=== PATIENT | male | born 1955 | race Caucasian/White ===

== ENCOUNTER → 2024-01-24 08:25 | Outpatient (REF) | payer MEDICARE, OTHER, SELFPAY | LOC: RAD 08:25 | PROVIDERS: ATTENDING PHYSICIAN Nurse Practitioner Family | DX: R05.1 Acute cough (principal) | CPT/HCPCS: 71046 ==

== ENCOUNTER → 2024-05-22 07:42 | Outpatient (REF) | payer MEDICARE, OTHER, SELFPAY | LOC: DHVS 07:42 | PROVIDERS: ATTENDING PHYSICIAN Surgery Vascular Surgery; FAMILY PHYSICIAN Family Medicine | DX: I73.9 Peripheral vascular disease, unspecified (principal) | CPT/HCPCS: 93922; 93925 ==

== ENCOUNTER 2024-07-25 14:19 | Inpatient (IN) | payer MEDICARE, OTHER, SELFPAY ==
[2024-07-25 10:40] VITALS: BP 146/80
--- NOTE | 2024-07-25 10:44 | ED.GENMED ---
ED Provider Triage
<Abran Fraire PA-C - Last Filed: 07/25/24 10:45>
-
Patient seen by provider in Triage?: Seen in Triage
69-year-old male presents complaining of increasing swelling redness and pain to the left elbow. He states he was working on his pool 2 weeks ago and may have injured it.'s been swollen since then. He also notes chills body aches and sweats.
Initially seen at the urgent care but was sent here for further evaluation. He is not a diabetic. He has a history of COPD.
On exam left elbow is tender over the olecranon with swelling over the olecranon bursa. He does have decent motion. Question bursitis versus elbow injury or cellulitis. Basic labs drawn. He is afebrile per order x-rays. Advise that he needs
further evaluation
History of Present Illness
<Abran Fraire PA-C - Last Filed: 07/25/24 10:45>
General
Chief Complaint: Musculo-Skeletal Complaint
Time Seen by Provider: 07/25/24 11:14
<Ari Liang DO - Last Filed: 07/25/24 13:18>
General
Source: patient
Exam Limitations: none
History of Present Illness
History of Present Illness:
See MDM
Past History
<Abran Fraire PA-C - Last Filed: 07/25/24 10:45>
Past History
ED Past Medical History: COPD, HTN and Hypercholesterolemia
ED Past Surgical History: Other (Femoropopliteal bypass)
Social History
Tobacco: Former smoker
Alcohol: None
Drug: None
Personal:
Living: with family
Phy Exam
<Ari Liang DO - Last Filed: 07/25/24 13:18>
Physical Exam
Physical Exam:
See MDM
Course
<Abran Fraire PA-C - Last Filed: 07/25/24 10:45>
Orders/Labs/Results
Orders:
Orders
07/25/24 10:40
CR Elbow - Left Min 3 Views Urgent
Comment:
Reason For Exam: pain, swelling
07/25/24 10:50
C-Reactive Protein Urgent
Comment: ADD ON
Complete Blood Count/With Diff Urgent
Comprehensive Metabolic Panel Urgent
Erythrocyte Sed Rate Urgent
Comment: ADD ON
07/25/24 11:25
US Periph Venous UPPER Ext LT Urgent
Comment:
Reason For Exam: left forearm swelling and pain
07/25/24 11:38
Add On- LAB Urgent
Tests Added?: ESR, CRP
07/25/24 11:59
Body Fluid Cell Count Urgent
What is the Body Fluid: joint
Date Specimen was Collected: 07/25/24
Time Specimen was Collected: 11:52
Comment: with DIFF
Body Fluid Crystals Urgent
What is the Body Fluid: joint
Date Specimen was Collected: 07/25/24
Time Specimen was Collected: 11:52
Body Fluid Glucose Urgent
Fluid Source: Other
Other Source: Left olecranon bursa
Date Specimen was Collected: 07/25/24
Time Specimen was Collected: 11:52
Fluid Culture with Gram Stain Urgent
SHANTI Source: Joint Fluid
Specimen Description:
Date Specimen was Collected: 07/25/24
Time Specimen was Collected: 11:52
Gram Stain Stat
SHANTI Source: Joint
Specimen Description:
Date Specimen was Collected: 07/25/24
Time Specimen was Collected: 11:53
07/25/24 13:07
Piperacillin/Tazo 3.375 Gram [Zosyn] 3.375 gram in 50 ml IV NOW
Vancomycin [Vancocin] 2,000 mg 0.9% Sodium Chloride 500 ml [Nss] 500 ml IV NOW
07/25/24 13:08
PTT Urgent
Prothrombin Time Urgent
Abnormal Lab Results
07/25/24
10:50
Absolute Neuts (auto) 8.3 H 10^3/uL
(1.4-6.5)
Absolute Lymphs (auto) 0.7 L 10^3/uL
(1.2-3.4)
Absolute Monos (auto) 1.2 H 10^3/uL
(0.1-0.6)
Neutrophils % 80.2 H %
(42.2-75.2)
Lymphocytes % 6.8 L %
(20.5-51.1)
Monocytes % 11.7 H %
(1.7-9.3)
Potassium 3.4 L mmol/L
(3.5-5.1)
BUN 25 H mg/dl
(9-20)
Glucose 100 H mg/dl
(70-99)
Total Protein 6.1 L g/dl
(6.3-8.2)
07/25/24 10:50
07/25/24 10:50
Vital Signs
Initial and Last Documented VS:
Initial Vital Signs
Temp Pulse Resp BP Pulse Ox
98.0 F 75 20 146/80 89
07/25/24 10:40 07/25/24 10:40 07/25/24 10:40 07/25/24 10:40 07/25/24 10:40
Last Documented Vital Signs
Temp Pulse Resp BP Pulse Ox
98.0 F 75 20 146/80 89
07/25/24 10:40 07/25/24 10:40 07/25/24 10:40 07/25/24 10:40 07/25/24 10:40
<Ari Liang, DO - Last Filed: 07/25/24 13:18>
Orders/Labs/Results
Orders:
Orders
07/25/24 10:40
CR Elbow - Left Min 3 Views Urgent
Comment:
Reason For Exam: pain, swelling
07/25/24 10:50
C-Reactive Protein Urgent
Comment: ADD ON
Complete Blood Count/With Diff Urgent
Comprehensive Metabolic Panel Urgent
Erythrocyte Sed Rate Urgent
Comment: ADD ON
07/25/24 11:25
US Periph Venous UPPER Ext LT Urgent
Comment:
Reason For Exam: left forearm swelling and pain
07/25/24 11:38
Add On- LAB Urgent
Tests Added?: ESR, CRP
07/25/24 11:59
Body Fluid Cell Count Urgent
What is the Body Fluid: joint
Date Specimen was Collected: 07/25/24
Time Specimen was Collected: 11:52
Comment: with DIFF
Body Fluid Crystals Urgent
What is the Body Fluid: joint
Date Specimen was Collected: 07/25/24
Time Specimen was Collected: 11:52
Body Fluid Glucose Urgent
Fluid Source: Other
Other Source: Left olecranon bursa
Date Specimen was Collected: 07/25/24
Time Specimen was Collected: 11:52
Fluid Culture with Gram Stain Urgent
SHANTI Source: Joint Fluid
Specimen Description:
Date Specimen was Collected: 07/25/24
Time Specimen was Collected: 11:52
Gram Stain Stat
SHANTI Source: Joint
Specimen Description:
Date Specimen was Collected: 07/25/24
Time Specimen was Collected: 11:53
07/25/24 13:07
Piperacillin/Tazo 3.375 Gram [Zosyn] 3.375 gram in 50 ml IV NOW
Vancomycin [Vancocin] 2,000 mg 0.9% Sodium Chloride 500 ml [Nss] 500 ml IV NOW
07/25/24 13:08
PTT Urgent
Prothrombin Time Urgent
Abnormal Lab Results
07/25/24
10:50
Absolute Neuts (auto) 8.3 H 10^3/uL
(1.4-6.5)
Absolute Lymphs (auto) 0.7 L 10^3/uL
(1.2-3.4)
Absolute Monos (auto) 1.2 H 10^3/uL
(0.1-0.6)
Neutrophils % 80.2 H %
(42.2-75.2)
Lymphocytes % 6.8 L %
(20.5-51.1)
Monocytes % 11.7 H %
(1.7-9.3)
Potassium 3.4 L mmol/L
(3.5-5.1)
BUN 25 H mg/dl
(9-20)
Glucose 100 H mg/dl
(70-99)
Total Protein 6.1 L g/dl
(6.3-8.2)
07/25/24 10:50
07/25/24 10:50
Vital Signs
Initial and Last Documented VS:
Initial Vital Signs
Temp Pulse Resp BP Pulse Ox
98.0 F 75 20 146/80 89
07/25/24 10:40 07/25/24 10:40 07/25/24 10:40 07/25/24 10:40 07/25/24 10:40
Last Documented Vital Signs
Temp Pulse Resp BP Pulse Ox
98.0 F 75 20 146/80 89
07/25/24 10:40 07/25/24 10:40 07/25/24 10:40 07/25/24 10:40 07/25/24 10:40
Procedures
<Ari Liang, DO - Last Filed: 07/25/24 13:18>
Incision/Drainage/Joint Aspiration
Left Olecranon Bursa:
Preparation: cleaned with Betadine
Type of procedure: aspiration
Nature of site: other (Effusion)
Description of abscess: greater than 3cm
Loculations broken up: No
How much fluid was obtained?: number in mls (20 mL)
Fluid description: purulent
Treatment: bandaid applied
<Ari Liang, DO - Last Filed: 07/25/24 13:18>
MDM/Problems Addressed
Differential Diagnosis Includes:
HPI and MDM Narrative:
69-year-old male presenting with left elbow swelling. Patient thinks he injured it 2 weeks ago while closing of his pool. He noticed some fevers and chills few days ago. Went to urgent care and sent to the emergency department because of a did
not have x-ray capabilities at that moment
However, patient has edematous and erythematous left forearm. He has evidence of left olecranon bursitis. There is mild surrounding erythema.
Physical exam
General: Well appearing and non-toxic
HEENT: protecting airway
Neck: appears supple
CV: No evidence of cyanosis
Resp: No accessory muscle use
Abd: Non-distended
Extremities: Left elbow bursitis. Edema and erythema noted to left forearm
Neuro: alert
Psych: Normal affect
Skin: Intact
Problems Addressed including Acute and Chronic Conditions affecting care:
1. Left elbow bursitis
Acuity: acute
Prognosis: stable
Details: X-rays negative. Patient afebrile and white blood cell count normal. However, the aspirate was purulent
Updates
The left olecranon bursitis was drained at bedside. 20 mL of purulent aspirate was removed. Will send for testing
Given high concern for septic bursitis, will admit for IV antibiotics
Differential Diagnosis (but not limited to): Fracture, contusion, bursitis
Testing considered: Synovial fluid analysis
Drug therapy (if applicable): OTC meds, please see d/c instruction regarding Rx drugs
Amount and/or Complexity of Data Reviewed
Clinical info obtained from: Patient
External data reviewed: N/A
Labs I independently reviewed (but not limited to): White blood cell count normal
Radiology: X-ray independently reviewed: Elbow x-ray negative for fracture
Pulse Ox: not hypoxic
EKG independently reviewed: N/A
Shuttle Fitting Supervisor: N/A
Critical Care: N/A
Risk of Complication:
Social Determinants of health: Good social support
Discussed with other providers: Hospitalist
Escalation of Care includes Admit/Obs: Given the concern for septic bursitis, will admit for IV antibiotics
Occasional wrong word or 'sound a like' substitutions may have occurred due to the inherent limitations of voice recognition software. Read the chart carefully and recognize, using context, where substitutions have occurred.
<Ari Liang DO - Last Filed: 07/25/24 13:18>
*Critical Care Note
Total Time (30-74mins, 75-104mins- exclusive of procedures): Not Applicable
ED Attending Note
<Abran Fraire PA-C - Last Filed: 07/25/24 10:45>
-
Portions of this chart may have been created with voice recognition software.� Occasional wrong word or��sound alike� substitutions may have occurred due to the inherent limitations of voice recognition software.
Discharge Plan
Departure
Patient Disposition: Admit
Date of Disposition: 07/25/24
Time of Disposition: 13:14
Admit to: Med/Surg
Presentation/result/management discussed w/ accepting MD/DO: Hospitalist
Discharge Problem:
Septic bursitis of elbow
Prescriptions:
No Action
Atorvastatin
80 mg PO HS
furosemide 40 MG tablet
40 mg PO DAILY
metoprolol succinate 100 MG tablet extended release 24 hr
150 mg PO DAILY
aspirin [[place] Low Dose Aspirin] 81 MG tablet,delayed release (DR/EC)
81 mg PO DAILY
acetaminophen 325 MG tablet
650 mg PO Q4HPRN PRN (Reason: mild pain or temp >/= 100.4F) 0RF
montelukast 10 mg Tablet
10 mg PO DAILY
hydralazine 50 mg Tablet
50 mg PO TID
Trelegy Ellipta 200-62.5-25 mcg Blister With Device
1 inh INHALATION DAILY
Referrals:
Radha Feliciano MD [Family Provider] -
Interventions
Interventions:
*Risk Screen - Suicide Last Done: 07/25/24 10:40
*General Assessment Last Done: 07/25/24 10:40
*Neglect/Abuse Screening Last Done: 07/25/24 10:40
ED- Fall Risk Assessment Last Done: 07/25/24 11:14
*ED COVID-19 Vaccine History Last Done: 07/25/24 11:13
ED-Musculoskeletal Assessment Last Done: 07/25/24 11:13
Discharge Date and Time
Print Language: WELSH
[2024-07-25 11:05] LABS: % Basophils 0.3 % (0-2); % Eosinophils 0.7 % (0-6); % Immature Granulocytes 0.3 % (0-0.5); % Lymphocytes 6.8 % (20.5-51.1); % Monocytes 11.7 % (1.7-9.3); % Neutrophils 80.2 % (42.2-75.2); Absolute Eosinophils 0.1 10^3/uL (0-0.7); Absolute Lymphocytes 0.7 10^3/uL (1.2-3.4); Absolute Monocytes 1.2 10^3/uL (0.1-0.6); Absolute Neutrophils 8.3 10^3/uL (1.4-6.5); Hematocrit 47.2 % (39.0-52.0); Hemoglobin 16.1 g/dL (13.0-18.0); Mean Corp Hgb Conc. 34.1 g/dL (33.0-37.0); Mean Corpuscular Hgb 30.9 pg (27.0-31.0); Mean Corpuscular Volume 90.6 fL (80.0-94.0); Mean Platelet Volume 10.2 fL (7.4-10.4); Nucleated Red Blood Cells % 0 % (-); Platelet Count 203 10^3/uL (130-400); Red Blood Cell Count 5.21 10^6/uL (4.70-6.10); Red Cell Dist. Width 13.5 % (11.5-14.5); White Blood Cell Count 10.3 10^3/uL (4.8-10.8)
[2024-07-25 11:24] LABS: ALT (SGPT) 28 U/L (0-50); AST (SGOT) 28 U/L (17-59); Albumin 3.6 g/dl (3.5-5.0); Alkaline Phosphatase 61 U/L (38-126); Blood Urea Nitrogen 25 mg/dl (9-20); Calcium 8.8 mg/dl (8.4-10.2); Carbon Dioxide 30 mmol/L (22-30); Chloride 100 mmol/L (98-107); Glucose 100 mg/dl (70-99); Potassium 3.4 mmol/L (3.5-5.1); Sodium 144 mmol/L (135-145); Total Bilirubin 1.1 mg/dl (0.2-1.3); Total Protein 6.1 g/dl (6.3-8.2); eGFR > 60.00
--- NOTE | 2024-07-25 13:32 | HPS.HSE ---
Family Physician
-
Family Physician: Radha Feliciano
Chief Complaint
-
Left elbow pain and swelling
History of Present Illness
HPI: 69-year-old male PMH COPD, HTN, HLD, p/w L elbow pain and swelling.
Pt was working on his pool 2 weeks ago, and had an injury on his left elbow at that time. Since the injury, his elbow has been swollen.
He was seen at an urgent care for chills and body ache ongoing for 1 week, and was told to come to the ED for further evaluation.
He is left elbow was aspirated in the ER and pus was noted.
He was admitted for further treatment of olecranon bursitis/septic arthritis.
Medical History
Past Medical History
Past Medical History: Reports Other
Additional Past Medical History:
COPD,
HTN,
HLD,
Peripheral artery disease
History of traumatic brain injury
Past Surgical History: Reports Other
Additional Past Surgical History:
Femoral-popliteal bypass surgery
hernia surgery
Social History
Tobacco: Former Smoker (Quit in 2019)
Alcohol: Occasional
Personal:
Living: With Family
Family History
Family History: Not pertinent
Allergies / Home Medications
Allergies reflects when Allergies were last updated in [facility].
Home Medications with original date entered in [facility]
Allergy/Medication List:
Allergies
Allergy/AdvReac Type Severity Reaction Status Date / Time
No Known Allergies Allergy Verified 07/25/24 10:40
Home Medications
aspirin 81 mg tablet,delayed release ([place] Low Dose Aspirin) 81 mg PO DAILY Blood Clot Prevention/Tx 08/07/19
furosemide 40 mg tablet 80 mg PO DAILY Fluid Retention/Swelling 08/07/19
metoprolol succinate 100 mg tablet,extended release 24 hr 150 mg PO BID Blood Pressure 08/07/19
fluticasone fur. 200 mcg-umeclid 62.5 mcg-vilant 25 mcg inhalat.powder (Trelegy Ellipta) 1 inh inhalation HS Lung/Breathing Issues 08/27/23
hydralazine 50 mg tablet 50 mg PO TID Blood Pressure 08/27/23
atorvastatin 80 mg tablet 80 mg PO DAILY 07/25/24
furosemide 40 mg tablet 40 mg PO DAILY@1600 Fluid Retention/Swelling 07/25/24
Review of Systems
-
Musculoskeletal: Reports See HPI, Joint Pain (L elbow) and Joint Swelling (L elbow)
Physical Exam
Vital Signs
Vital Signs
Temp Pulse Resp BP Pulse Ox
36.7 C 75 20 146/80 89
07/25/24 10:40 07/25/24 10:40 07/25/24 10:40 07/25/24 10:40 07/25/24 10:40
Physical Exam
General: Well Developed, Well Nourished, No Apparent Distress, Conversant and Pain
HEENT: NormoCephalic, Moist mucous membranes and Atraumatic
Respiratory: Clear and Non Labored Respirations; No Accessory Resp Muscle Use
Cardiac: S1/S2 and Regular Rhythm; No Murmur or Rub
GI: Soft, Non Tender, Non Distended and Normal Bowel Sounds; No Organomegaly
Rectal: Deferred by Provider
Musculoskeletal: Other (Left elbow swelling)
Skin: No Rash
Neuro: Awake and Alert
Psych: Calm and Intact Judgment/Insight
Laboratory Results
-
07/25/24 10:50
07/25/24 10:50
Laboratory Results
Total Bilirubin 1.1 mg/dl (0.2-1.3) 07/25/24 10:50
AST 28 U/L (17-59) 07/25/24 10:50
ALT 28 U/L (0-50) 07/25/24 10:50
Alkaline Phosphatase 61 U/L (38-126) 07/25/24 10:50
Data Reviewed
-
Diagnostic Radiology: Report Reviewed by me
Lab Data: Labs Reviewed by me
Impression/Plan
-
HPI: 69-year-old male PMH COPD, HTN, HLD, p/w L elbow pain and swelling.
Pt was working on his pool 2 weeks ago, and had an injury on his left elbow at that time. Since the injury, his elbow has been swollen.
He was seen at an urgent care for chills and body ache ongoing for 1 week, and was told to come to the ED for further evaluation.
He is left elbow was aspirated in the ER and pus was noted.
He was admitted for further treatment of olecranon bursitis/septic arthritis.
A/P:
# Left elbow olecranon bursitis/ septic arthritis
Status post I&D in the ER which noted pus
With persistent significant left elbow swelling, consult IR for additional arthrocentesis
Follow wound culture etc
Cont empiric antibiotic vancomycin and Zosyn
ID CS
# Hypokalemia
replete
# COPD, stable
# HTN
Continue prior to admission hydralazine, Toprol, Lasix, all with holding parameter
# HLD
Atorvastatin
# Peripheral artery disease
# Status post femoral popliteal bypass surgery
cont BANK APPRAISER ASA
DVT ppx: Lovenox SQ
FC
[2024-07-25 13:37] LABS: Erythrocyte Sed Rate 29 mm/hour (0-20)
[2024-07-25 13:42] VITALS: BMI 33.1
[2024-07-25 13:48] LABS: INR 1.29; PT 16.1 Sec (11.4-14.6)
[2024-07-25 13:49] LABS: APTT 35.2 Sec (23.4-35.0)
[2024-07-25] MEDS: ZOSYN 50 IV (13:50)
[2024-07-25] MEDS: TORADOL 30 MG IV (13:50)
[2024-07-25] MEDS: KCL 40 MEQ PO (13:50)
[2024-07-25] MEDS: VANCOCIN 540 MG IV (14:40)
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
[2024-07-25 15:39] VITALS: BP 130/100
[2024-07-25 16:19] VITALS: BP 143/75
[2024-07-25 16:20] VITALS: BMI 30.7
--- NOTE | 2024-07-25 16:20 | PTCARENOTE ---
Received pt from ED.Pt awake, alert and oriented x3. Pt VSS 92% on RA. Pt Left elbow, red, warm, swelling extending down arm into hand. Pt given pillows to elevate. Pt given tylenol for pain. Pt oriented to room,call hull within reach, plan of care
continues.
--- NOTE | 2024-07-25 16:48 | PHA.VAN.IN ---
Assessment
- Assessment
Renal Function: Appears similar to baseline
Concomitant Antimicrobials: ANCEF
- Previous Dosing Experience
Previous Regimen: 1250MG IV Q12H
Date of Regimen: 08/26/19
Provided Trough of: 08-22 PREDICTED
Provided AUC of: UNKNOWN
Patient's SCR is: Similar to previous dosing experience
Patient's weight is: Decreased compared to previous dosing experience (08/26/19 WT = 110 KG)
AUC Dosing Plan
- Dosing Variables
Dosing Weight (kg): 99.8
Dosing CrCl (ml/min): 75
Vd coefficient (L/kg): 0.6
- Empiric Dosing
Initial / Loading Dose: 2GM
Maintenance Regimen: 1GM IV Q12H
Estimated AUC (mcg*h/mL): 518
Estimated Peak (mcg*h/mL): 30.3
Estimated Trough (mcg/ml): 14.5
Estimated Half Life (H): 10.4
Pharmacokinetics Vancomycin I
- -
Patient Age: 69
Patient Sex: Male
Vancomycin Day #: 1
Indication: [facility] ([L] OLECRANON BURSITIS; [L] ARM CELLULITIS)
Requesting Provider: BATSHEVA
Height / Weight:
Height 5 ft 11 in
Actual Weight 99.79 kg
- Vital Signs / Lab Results
Temp Pulse Resp BP Pulse Ox
98 F 63 18 143/75 92
07/25/24 16:19 07/25/24 16:19 07/25/24 16:19 07/25/24 16:19 07/25/24 16:19
Lab Results - Hematology
07/25/24
10:50
WBC 10.3
Lab Results - Chemistry
07/25/24
10:50
BUN 25 H
Creatinine 1.1
Albumin 3.6
[2024-07-25] MEDS: LASIX 40 MG PO (17:10)
[2024-07-25] MEDS: APRESOLINE 50 MG PO ×2 (17:10→21:05)
[2024-07-25] MEDS: LOVENOX 40 MG SC (17:10)
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
[2024-07-25] MEDS: TYLENOL 650 MG PO (18:08)
[2024-07-25] MEDS: SYMBICORT 160/4.5 MCG INHALER 2 PUFF INH (20:06)
[2024-07-25] MEDS: TOPROL XL 150 MG PO (21:00)
[2024-07-25] MEDS: ANCEF 10 IV (21:02)
[2024-07-25 23:06] VITALS: BP 110/44
[2024-07-26] MEDS: TYLENOL 650 MG PO ×2 (03:37→15:29)
[2024-07-26] MEDS: ANCEF 10 IV ×3 (04:59→21:28)
[2024-07-26] MEDS: VANCOCIN 200 IV (05:19)
[2024-07-26 06:01] LABS: % Basophils 0.5 % (0-2); % Eosinophils 1.4 % (0-6); % Immature Granulocytes 0.5 % (0-0.5); % Lymphocytes 7.9 % (20.5-51.1); % Monocytes 12.2 % (1.7-9.3); % Neutrophils 77.5 % (42.2-75.2); Absolute Eosinophils 0.1 10^3/uL (0-0.7); Absolute Lymphocytes 0.7 10^3/uL (1.2-3.4); Absolute Neutrophils 6.6 10^3/uL (1.4-6.5); Mean Corp Hgb Conc. 33.3 g/dL (33.0-37.0); Mean Corpuscular Hgb 29.7 pg (27.0-31.0); Mean Platelet Volume 10.7 fL (7.4-10.4); Nucleated Red Blood Cells % 0 % (-); Platelet Count 218 10^3/uL (130-400); Red Blood Cell Count 4.72 10^6/uL (4.70-6.10); Red Cell Dist. Width 13.7 % (11.5-14.5); White Blood Cell Count 8.5 10^3/uL (4.8-10.8)
[2024-07-26 06:33] LABS: Blood Urea Nitrogen 22 mg/dl (9-20); Calcium 8.2 mg/dl (8.4-10.2); Carbon Dioxide 28 mmol/L (22-30); Chloride 102 mmol/L (98-107); Estimated Creatinine Clearance 83 ml/min; Glucose 105 mg/dl (70-99); Potassium 3.6 mmol/L (3.5-5.1); Sodium 141 mmol/L (135-145); eGFR > 60.00
[2024-07-26 07:39] VITALS: BP 118/61
[2024-07-26] MEDS: SYMBICORT 160/4.5 MCG INHALER INH (07:49)
[2024-07-26] MEDS: KCL 40 MEQ PO (08:55)
[2024-07-26] MEDS: ASPIR LOW (ENTERIC COATED) 81 MG PO (08:55)
[2024-07-26] MEDS: APRESOLINE 50 MG PO ×3 (08:55→21:29)
[2024-07-26] MEDS: TOPROL XL 150 MG PO ×2 (08:56→21:28)
[2024-07-26] MEDS: LASIX 80 MG PO (08:58)
--- NOTE | 2024-07-26 10:01 | PHA.VAN.FU ---
Vancomycin Assessment / Plan
- Assessment
Renal Function: Stable
WBC's are: WNL
In the past 24 hrs, patient has been: Afebrile
Concomitant Antimicrobials: cefazolin
- Dosing Plan
Continue: Vanc 1000mg Q12H
- Monitoring Plan
No level(s) ordered at this time: consider levels in next few days
- Follow Up
Pharmacy will continue to follow.
Vancomycin Follow UP
- -
Patient Age: 69
Patient Sex: Male
Vancomycin Day #: 2
Indication: [facility]
Requesting Provider: Dr. Cabrera / [place]
Pertinent Antimicrobial Allergies:
NKDA
Height / Weight:
Height 5 ft 11 in
Actual Weight 99.79 kg
Pertinent Past Medical History: BMI ~31
- Vital Signs / Lab Results
Temp Pulse Resp BP Pulse Ox
97.7 F 56 22 118/61 88
07/26/24 07:39 07/26/24 07:39 07/26/24 07:39 07/26/24 07:39 07/26/24 07:39
Lab Results - Hematology
07/25/24 07/26/24
10:50 04:49
WBC 10.3 8.5
Lab Results - Chemistry
07/25/24 07/26/24
10:50 04:49
BUN 25 H 22 H
Creatinine 1.1 1.0
Estimated Creat Clear 83
Albumin 3.6
--- NOTE | 2024-07-26 10:17 | W.PN.HOSP.TC ---
Today's Communication/Plan
-
see A/P
Assessment / Plan
Assessment / Plan
HPI: 69-year-old male PMH COPD, HTN, HLD, p/w L elbow pain and swelling.
Pt was working on his pool 2 weeks ago, and had an injury on his left elbow at that time. Since the injury, his elbow has been swollen.
He was seen at an urgent care for chills and body ache ongoing for 1 week, and was told to come to the ED for further evaluation.
He is left elbow was aspirated in the ER and pus was noted.
He was admitted for further treatment of olecranon bursitis/septic arthritis.
A/P:
# Left septic olecranon bursitis
Status post I&D in the ER which noted pus, follow wound culture
IR was consulted for additional arthrocentesis due to persistent significant left elbow swelling, defer to ortho
Ortho recc conservative Mx for now with Abx, 'surgical intervention reserved for recurrent or recalcitrant cases'.
Cont empiric antibiotics vancomycin, added Ancef and off Zosyn
L arm US negative for DVT
ID on board
# Hypokalemia
replete
# COPD, stable
# HTN
Continue prior to admission hydralazine, Toprol, Lasix, all with holding parameter
# HLD
Atorvastatin
# Peripheral artery disease
# Status post femoral popliteal bypass surgery
cont VMWARE CONSULTANT ASA
DVT ppx: Lovenox SQ
FC
DW at beside
Anticipated Discharge: 24 - 48 hours
Subjective/Interval History
-
Date of Service: July 26, 2024
Objective Data
-
Labs:
Laboratory Results
07/26/24
04:49
WBC 8.5
Hgb 14.0
Hct 42.0
Plt Count 218
Sodium 141
Potassium 3.6
Chloride 102
Carbon Dioxide 28
BUN 22 H
Creatinine 1.0
Glucose 105 H
Calcium 8.2 L
Vital Signs:
Vital Signs
Temp Pulse Resp BP Pulse Ox
36.5 C 56 22 118/61 88
07/26/24 07:39 07/26/24 07:39 07/26/24 07:39 07/26/24 07:39 07/26/24 07:39
I&O
07/25/24 07/26/24 07/27/24
06:59 06:59 06:59
Intake Total 480 / 480
Output Total 210 / 210
Balance 270 / 270
Review of Systems
-
Musculoskeletal: Reports Joint Pain (L elbow swelling and pain have improved )
Physical Exam
-
General: Well Developed, Well Nourished, No Apparent Distress, Comfortable and Conversant; Negative Respiratory Distress
HEENT: Normocephalic, Atraumatic, Nose Appears Normal and Ears Appear Normal; Negative Oxygen
Respiratory: Clear to Auscultation and Non Labored Respirations; Negative Accessory Resp Muscle Use
Cardiac: Regular Rhythm and S1/S2
GI: Soft, Nontender, Nondistended and Normal Bowel Sounds
Skin: Warm, Dry and Other (L elbow swelling and erythema )
Neuro: Awake, Alert, Oriented, AO x 3 and Nonfocal/Grossly Intact
Psych: Calm and Intact Judgement/Insight
Data Reviewed
-
Ultrasound: Report Reviewed by me
Labs: Labs Reviewed by me
--- NOTE | 2024-07-26 15:40 | W.PN.ID1 ---
Date of Service
Date of Service: July 26, 2024
Today's Communication
Continue antibiotics. Narrow to cefazolin alone.
Assessment / Plan
Left olecranon bursitis
Left arm cellulitis
Normal white count with left shift
Elevated CRP
PAD
HTN
COPD
Dyslipidemia
Obesity
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
Recommendations:
Bursa cultures were reviewed with the microbiology department. Staph aureus found on culture; PBP2a negative.
Narrow to cefazolin alone but will await full bacterial susceptibilities.
Follow bursa clinically for improvement.
Continue to monitor white count and temperature curve.
Case discussed with Orthopedics, and patient may need serial aspirations.
����������������������������������������������������������
Chief Complaint
-: Other (Left olecranon bursitis)
Subjective / Review of Systems
Patient seen and examined. Reports left arm feels mildly improved, although breast remains quite swollen.
Review of Systems: No Fever and No Chills
Vital Signs / Physical Exam
Vital Signs
Vital Signs
Temp Pulse Resp BP Pulse Ox
97.7 F 56 22 118/61 91
07/26/24 07:39 07/26/24 07:39 07/26/24 07:39 07/26/24 07:39 07/26/24 08:30
Physical Exam
Constitutional: No Acute Distress, Comfortable and Non-toxic
Eyes: No Conjunctival Hemorrhage and Sclera Anicteric
Cardiovascular: S1/S2; Negative S3/S4
Pulmonary: Non Labored
Gastrointestinal: Soft and Non Tender
Musculoskeletal: Other (Left olecranon bursa remains markedly swollen and 'full'. Still with some induration along the forearm and more proximal arm. No axillary adenopathy.)
Skin: Warm and Dry
Wound: None
Neurological: Awake and Alert
Psychological: Calm
Objective Data
Lab Data
Lab Results
07/26/24 04:49
07/26/24 04:49
ESR 29 mm/hour (0-20) H 07/25/24 10:50
PT 16.1 Sec (11.4-14.6) H 07/25/24 13:21
INR 1.29 07/25/24 13:21
APTT 35.2 Sec (23.4-35.0) H 07/25/24 13:21
Estimated Creat Clear 83 ml/min 07/26/24 04:49
Total Bilirubin 1.1 mg/dl (0.2-1.3) 07/25/24 10:50
AST 28 U/L (17-59) 07/25/24 10:50
ALT 28 U/L (0-50) 07/25/24 10:50
Alkaline Phosphatase 61 U/L (38-126) 07/25/24 10:50
C-Reactive Protein 174.60 mg/L (0.0-10.00) H 07/25/24 10:50
Most recent labs reviewed.
Micro Results:
07/25/24 11:59 Anaerobic Culture - Preliminary
Elbow - Left Culture pending. Anaerobic cultures are examined after 3
days incubation. Additional information to follow.
07/25/24 11:59 Wound Culture - Preliminary
Elbow - Left Staphylococcus aureus
Gram Stain - Preliminary
Imaging:
07/25/2024 X-ray, left arm: No fracture or dislocation. No joint effusion. A small ulnar osteophyte at the site of attachment of the triceps tendon. There is soft tissue swelling over the dorsal margin of the olecranon suggesting olecranon
bursitis.
Care Review
Plan reviewed with: Physician (Orthopedics)
[2024-07-26 15:51] VITALS: BP 121/67
--- NOTE | 2024-07-26 15:52 | W.PN.ORTHO ---
Today's Communication / Plan
-
Discussion had with infectious disease, fluid/pus may be filling bursa and preventing antibiotic penetration. Decision made to reaspirate the elbow. 3mL of seropurulent fluid aspirated. Will continue to monitor for resolution of bursitis, may
require future aspiration.
Assessment
.
Distal Motor Intact: Yes
Dressing:
Clean, dry and intact.
Assessment:
left elbow olecranon bursitis
Plan
.
Activity:
Out of bed.
PT/OT
Subjective
.
.:
Patient resting comfortably.
States swelling is improved, but olecranon bursa still enlarged.
Denies new complaints.
Vital Signs and Labs
.
Vital Signs and Labs:
Lab Results
07/26/24 04:49
07/26/24 04:49
Temp Pulse Resp BP Pulse Ox
98.6 F 77 22 121/67 87
07/26/24 15:51 07/26/24 15:51 07/26/24 15:51 07/26/24 15:51 07/26/24 15:51
PT 16.1 Sec (11.4-14.6) H 07/25/24 13:21
INR 1.29 07/25/24 13:21
Physical Exam
-
prominent olecranon bursa, swelling decreased to arm
NVI distally
5/5 in all msucle groups
[2024-07-26] MEDS: LASIX 40 MG PO (16:47)
--- NOTE | 2024-07-26 17:24 | CM ---
met with patient at bedside.patient lives with his in house with 2 zion,his bed and bath is on the second floor,he amb I and is I with his adl.he had a vn through [facility] in past but no ip rehab episodes.
PCP dr devyn grullon [facility] in [place]
PMH: copd,htn,cad,traumatic brain injury,pad,former smoker
patient is adm with left olecranon bursitis,on iv ancef,inhaler,lovenox plan is to change to po abx at dc.patient is totally I.Plan dc home with no needs.
[2024-07-26] MEDS: LIPITOR 80 MG PO (17:35)
[2024-07-26] MEDS: LOVENOX 40 MG SC (17:35)
--- NOTE | 2024-07-26 18:05 | PTCARENOTE ---
Received patient this am AAOx3. Pt seen by orthopedics. Left elbow aspirated by ortho. Pt complained of tenderness to area. Medicated with Tylenol with relief. Tolerated diet well. Pt had 3 bowel movements today. Made patient comfortable. Cont
to assess patient status.
[2024-07-26] MEDS: NON-FORMULARY ITEM 1 UNIT INH (21:45)
[2024-07-26 23:33] VITALS: BP 131/51
[2024-07-27] MEDS: ANCEF 10 IV ×3 (03:56→20:40)
[2024-07-27 07:27] VITALS: BP 129/58
[2024-07-27 08:49] LABS: % Basophils 0.3 % (0-2); % Eosinophils 0.7 % (0-6); % Immature Granulocytes 0.2 % (0-0.5); % Lymphocytes 7.1 % (20.5-51.1); % Monocytes 11.2 % (1.7-9.3); % Neutrophils 80.5 % (42.2-75.2); Absolute Eosinophils 0.1 10^3/uL (0-0.7); Absolute Lymphocytes 0.7 10^3/uL (1.2-3.4); Absolute Monocytes 1.1 10^3/uL (0.1-0.6); Absolute Neutrophils 7.6 10^3/uL (1.4-6.5); Hematocrit 45.7 % (39.0-52.0); Hemoglobin 15.1 g/dL (13.0-18.0); Mean Corpuscular Hgb 30.4 pg (27.0-31.0); Mean Corpuscular Volume 92.1 fL (80.0-94.0); Mean Platelet Volume 10.3 fL (7.4-10.4); Nucleated Red Blood Cells % 0 % (-); Platelet Count 227 10^3/uL (130-400); Red Blood Cell Count 4.96 10^6/uL (4.70-6.10); Red Cell Dist. Width 13.7 % (11.5-14.5); White Blood Cell Count 9.4 10^3/uL (4.8-10.8)
--- NOTE | 2024-07-27 08:52 | W.PN.HOSP.TC ---
Today's Communication/Plan
-
see A/P
Assessment / Plan
Assessment / Plan
HPI: 69-year-old male PMH COPD, HTN, HLD, p/w L elbow pain and swelling.
Pt was working on his pool 2 weeks ago, and had an injury on his left elbow at that time. Since the injury, his elbow has been swollen.
He was seen at an urgent care for chills and body ache ongoing for 1 week, and was told to come to the ED for further evaluation.
He is left elbow was aspirated in the ER and pus was noted.
He was admitted for further treatment of olecranon bursitis/septic arthritis.
A/P:
# Left septic olecranon bursitis
Status post I&D in the ER which noted pus
Wound culture with Staph aureus
IR was consulted for additional arthrocentesis due to persistent significant left elbow swelling, defer to ortho
Ortho reaspirated the elbow and 3mL of seropurulent fluid removed 07/26.
Cont empiric antibiotic Ancef, DCed vancomycin
Of note, L arm US negative for DVT
ID on board
# Hypokalemia
repleted
# COPD, stable
# HTN
Continue prior to admission hydralazine, Toprol, Lasix, all with holding parameter
# HLD
Atorvastatin
# Peripheral artery disease
# Status post femoral popliteal bypass surgery
cont LOCK INSTALLER ASA
DVT ppx: Lovenox SQ
FC
DW ID
Anticipated Discharge: 24 - 48 hours
Subjective/Interval History
-
Date of Service: July 27, 2024
Objective Data
-
Labs:
Laboratory Results
07/27/24
08:00
WBC 9.4
Hgb 15.1
Hct 45.7
Plt Count 227
Sodium Pending
Potassium Pending
Chloride Pending
Carbon Dioxide Pending
BUN Pending
Creatinine Pending
Glucose Pending
Calcium Pending
Vital Signs:
Vital Signs
Temp Pulse Resp BP Pulse Ox
36.9 C 82 22 129/58 88
07/27/24 07:27 07/27/24 07:27 07/27/24 07:27 07/27/24 07:27 07/27/24 07:27
I&O
07/26/24 07/27/24 07/28/24
06:59 06:59 06:59
Intake Total 480 / 480 1160 / 1160
Output Total 210 / 210 300 / 300
Balance 270 / 270 860 / 860
Review of Systems
-
Musculoskeletal: Reports Joint Pain (L elbow swelling and pain have improved )
Physical Exam
-
General: Well Developed, Well Nourished, No Apparent Distress, Comfortable and Conversant; Negative Respiratory Distress
HEENT: Normocephalic, Atraumatic, Nose Appears Normal and Ears Appear Normal; Negative Oxygen
Respiratory: Clear to Auscultation and Non Labored Respirations; Negative Accessory Resp Muscle Use
Cardiac: Regular Rhythm and S1/S2
GI: Soft, Nontender, Nondistended and Normal Bowel Sounds
Skin: Warm, Dry and Other (L elbow swelling and erythema improved )
Neuro: Awake, Alert, Oriented, AO x 3 and Nonfocal/Grossly Intact
Psych: Calm and Intact Judgement/Insight
Data Reviewed
-
Ultrasound: Report Reviewed by me
Labs: Labs Reviewed by me
[2024-07-27 09:27] LABS: Blood Urea Nitrogen 15 mg/dl (9-20); Calcium 8.6 mg/dl (8.4-10.2); Carbon Dioxide 30 mmol/L (22-30); Chloride 101 mmol/L (98-107); Estimated Creatinine Clearance 92 ml/min; Glucose 107 mg/dl (70-99); Potassium 3.6 mmol/L (3.5-5.1); Sodium 143 mmol/L (135-145); eGFR > 60.00
[2024-07-27] MEDS: TOPROL XL 150 MG PO ×2 (09:40→20:41)
[2024-07-27] MEDS: ASPIR LOW (ENTERIC COATED) 81 MG PO (09:40)
[2024-07-27] MEDS: APRESOLINE 50 MG PO ×3 (09:40→21:59)
[2024-07-27] MEDS: LASIX 80 MG PO (09:41)
[2024-07-27] MEDS: VISBIOME 1 CAP PO (09:46)
--- NOTE | 2024-07-27 12:47 | W.PN.UPDATE ---
Update Note
Progress Note Update
Patient was seen this a.m. for follow-up for his left elbow septic left olecranon bursitis. Aspiration shows positive growth of Staph aureus. Patient reports continued improvement with his antibiotic regimen
Physical examination shows no current drainage or bleeding. There is bogginess about the left olecranon bursa. Minimal pain with elbow range of motion and neurovascularly intact distally
At this time we will continue with antibiotics per infectious disease and clinical monitoring. Orthopedic surgery will continue to follow
[2024-07-27 15:48] VITALS: BP 148/74
--- NOTE | 2024-07-27 16:41 | W.PN.ID1 ---
Date of Service
Date of Service: July 27, 2024
Today's Communication
Continue antibiotics.
Assessment / Plan
Left olecranon bursitis 2* MSSA
Left arm cellulitis
Normal white count with left shift
Elevated CRP
PAD
HTN
COPD
Dyslipidemia
Obesity
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
Recommendations:
Continue with cefazolin.
Follow bursa clinically for improvement.
Continue to monitor white count and temperature curve.
����������������������������������������������������������
Chief Complaint
-: Other (Left olecranon bursitis)
Subjective / Review of Systems
Patient seen and examined. Reports some improvement in left arm discomfort and pain.
Review of Systems: No Fever and No Chills
Vital Signs / Physical Exam
Vital Signs
Vital Signs
Temp Pulse Resp BP Pulse Ox
98.4 F 75 22 148/74 88
07/27/24 15:48 07/27/24 15:48 07/27/24 15:48 07/27/24 15:48 07/27/24 15:48
Physical Exam
Constitutional: No Acute Distress, Comfortable and Non-toxic
Eyes: No Conjunctival Hemorrhage and Sclera Anicteric
Cardiovascular: S1/S2; Negative S3/S4
Pulmonary: Non Labored
Gastrointestinal: Soft and Non Tender
Musculoskeletal: Other (Left olecranon bursa with slight decreased fullness. Still with some induration along the forearm and more proximal arm. No axillary adenopathy.)
Skin: Warm and Dry
Wound: None
Neurological: Awake and Alert
Psychological: Calm
Objective Data
Lab Data
Lab Results
07/27/24 08:00
07/27/24 08:00
ESR 29 mm/hour (0-20) H 10/16/24 10:50
PT 16.1 Sec (11.4-14.6) H 07/25/24 13:21
INR 1.29 07/25/24 13:21
APTT 35.2 Sec (23.4-35.0) H 07/25/24 13:21
Estimated Creat Clear 92 ml/min 07/27/24 08:00
Total Bilirubin 1.1 mg/dl (0.2-1.3) 07/25/24 10:50
AST 28 U/L (17-59) 07/25/24 10:50
ALT 28 U/L (0-50) 07/25/24 10:50
Alkaline Phosphatase 61 U/L (38-126) 07/25/24 10:50
C-Reactive Protein 174.60 mg/L (0.0-10.00) H 07/25/24 10:50
Most recent labs reviewed.
Micro Results:
07/25/24 11:59 Wound Culture - Preliminary
Elbow - Left S aureus-Methicillin Sensitive
Gram Stain - Preliminary
07/25/24 11:59 Anaerobic Culture - Preliminary
Elbow - Left Culture pending. Anaerobic cultures are examined after 3
days incubation. Additional information to follow.
Imaging:
07/25/2024 X-ray, left arm: No fracture or dislocation. No joint effusion. A small ulnar osteophyte at the site of attachment of the triceps tendon. There is soft tissue swelling over the dorsal margin of the olecranon suggesting olecranon
bursitis.
[2024-07-27] MEDS: LASIX 40 MG PO (16:42)
[2024-07-27] MEDS: LIPITOR 80 MG PO (17:51)
[2024-07-27] MEDS: LOVENOX 40 MG SC (17:51)
[2024-07-27] MEDS: NON-FORMULARY ITEM 1 UNIT INH (20:20)
[2024-07-27] MEDS: TYLENOL 650 MG PO (22:01)
[2024-07-27 23:47] VITALS: BP 105/62
[2024-07-28] MEDS: ANCEF 10 IV ×3 (03:40→19:55)
[2024-07-28 07:13] LABS: % Basophils 0.2 % (0-2); % Immature Granulocytes 0.5 % (0-0.5); % Lymphocytes 8.2 % (20.5-51.1); % Monocytes 11.5 % (1.7-9.3); % Neutrophils 78.6 % (42.2-75.2); Absolute Eosinophils 0.1 10^3/uL (0-0.7); Absolute Lymphocytes 0.7 10^3/uL (1.2-3.4); Absolute Neutrophils 6.8 10^3/uL (1.4-6.5); Hematocrit 45.7 % (39.0-52.0); Hemoglobin 14.8 g/dL (13.0-18.0); Mean Corp Hgb Conc. 32.4 g/dL (33.0-37.0); Mean Corpuscular Hgb 29.4 pg (27.0-31.0); Mean Corpuscular Volume 90.7 fL (80.0-94.0); Mean Platelet Volume 10.3 fL (7.4-10.4); Nucleated Red Blood Cells % 0 % (-); Platelet Count 236 10^3/uL (130-400); Red Blood Cell Count 5.04 10^6/uL (4.70-6.10); Red Cell Dist. Width 13.8 % (11.5-14.5); White Blood Cell Count 8.7 10^3/uL (4.8-10.8)
[2024-07-28 07:15] VITALS: BP 124/65
[2024-07-28 07:42] LABS: Blood Urea Nitrogen 14 mg/dl (9-20); Calcium 8.7 mg/dl (8.4-10.2); Carbon Dioxide 34 mmol/L (22-30); Chloride 100 mmol/L (98-107); Estimated Creatinine Clearance 83 ml/min; Glucose 111 mg/dl (70-99); Magnesium 2.1 mg/dl (1.6-2.3); Potassium 3.8 mmol/L (3.5-5.1); Sodium 142 mmol/L (135-145); eGFR > 60.00
[2024-07-28] MEDS: LASIX 80 MG PO (08:48)
[2024-07-28] MEDS: ASPIR LOW (ENTERIC COATED) 81 MG PO (08:49)
[2024-07-28] MEDS: TOPROL XL 150 MG PO ×2 (08:49→19:54)
[2024-07-28] MEDS: APRESOLINE 50 MG PO ×3 (08:49→22:00)
[2024-07-28] MEDS: VISBIOME 1 CAP PO (08:50)
--- NOTE | 2024-07-28 09:05 | W.PN.UPDATE ---
Update Note
Progress Note Update
Patient was seen this morning for follow-up for his left elbow septic left olecranon bursitis. He is sitting up comfortably on the edge of the bed. He states that his symptoms continue to improve daily. He has no pain in the elbow and reports that
his swelling seems a little better this morning.
Aspiration shows positive growth of MSSA.
Physical examination shows no current drainage or bleeding. There is bogginess about the left olecranon bursa. No pain with elbow range of motion, decreased flexion due to swelling, able to perform full extension. NVI distally.
Left elbow septic olecranon bursitis
--Continue with antibiotics per Infectious Disease recommendations. Currently Ancef
--May be weight bearing as tolerated. Encourage range of motion as tolerated
--Apply dressing to elbow as needed
--Orthopedics will continue to follow
--- NOTE | 2024-07-28 09:07 | W.PN.HOSP.TC ---
Today's Communication/Plan
-
see A/P
Assessment / Plan
Assessment / Plan
HPI: 69-year-old male PMH COPD, HTN, HLD, p/w L elbow pain and swelling.
Pt was working on his pool 2 weeks ago, and had an injury on his left elbow at that time. Since the injury, his elbow has been swollen.
He was seen at an urgent care for chills and body ache ongoing for 1 week, and was told to come to the ED for further evaluation.
He is left elbow was aspirated in the ER and pus was noted.
He was admitted for further treatment of olecranon bursitis/septic arthritis.
A/P:
# Left septic olecranon bursitis
Status post I&D in the ER which noted pus
Wound culture with MSSA
Ortho reaspirated the elbow and 3mL of seropurulent fluid removed 07/26.
Cont empiric antibiotic Ancef
Of note, L arm US negative for DVT
ID/ortho on board
# Hypokalemia
repleted
# COPD, stable
# HTN
Continue prior to admission hydralazine, Toprol, Lasix, all with holding parameter
# HLD
Atorvastatin
# Peripheral artery disease
# Status post femoral popliteal bypass surgery
cont CONFIGURATION ENGINEER ASA
DVT ppx: Lovenox SQ
FC
DW ID
Anticipated Discharge: 24 - 48 hours
Subjective/Interval History
-
Date of Service: July 28, 2024
Objective Data
-
Labs:
Laboratory Results
07/28/24
06:20
WBC 8.7
Hgb 14.8
Hct 45.7
Plt Count 236
Sodium 142
Potassium 3.8
Chloride 100
Carbon Dioxide 34 H
BUN 14
Creatinine 1.0
Glucose 111 H
Calcium 8.7
Vital Signs:
Vital Signs
Temp Pulse Resp BP Pulse Ox
36.3 C 74 18 124/65 88
07/28/24 07:15 07/28/24 07:15 07/28/24 07:15 07/28/24 07:15 07/28/24 07:15
I&O
07/27/24 07/28/24 07/29/24
06:59 06:59 06:59
Intake Total 1160 / 1160 960 / 960
Output Total 300 / 300
Balance 860 / 860 960 / 960
Review of Systems
-
Musculoskeletal: Reports Joint Pain (L elbow swelling and pain have improved )
Physical Exam
-
General: Well Developed, Well Nourished, No Apparent Distress, Comfortable and Conversant; Negative Respiratory Distress
HEENT: Normocephalic, Atraumatic, Nose Appears Normal and Ears Appear Normal; Negative Oxygen
Respiratory: Clear to Auscultation and Non Labored Respirations; Negative Accessory Resp Muscle Use
Cardiac: Regular Rhythm and S1/S2
GI: Soft, Nontender, Nondistended and Normal Bowel Sounds
Skin: Warm, Dry and Other (L elbow swelling and erythema have improved )
Neuro: Awake, Alert, Oriented, AO x 3 and Nonfocal/Grossly Intact
Psych: Calm and Intact Judgement/Insight
Data Reviewed
-
Ultrasound: Report Reviewed by me
Labs: Labs Reviewed by me
--- NOTE | 2024-07-28 14:29 | W.PN.ID1 ---
Date of Service
Date of Service: July 28, 2024
Today's Communication
Continue with cefazolin - planned for course of IV therapy
PICC tomorrow
For dc tuesday with course of IV, follow up with Dr Adams
Assessment / Plan
Left olecranon bursitis 2* MSSA
Left arm cellulitis
Normal white count with left shift
Elevated CRP
PAD
HTN
COPD
Dyslipidemia
Obesity
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
Recommendations:
Bursae remained swollen - orthopedics following
Continue with cefazolin - planned for course of IV therapy
PICC tomorrow
For dc tuesday with course of IV, follow up with Dr Adams
����������������������������������������������������������
Chief Complaint
-: Other (Left olecranon bursitis)
Subjective / Review of Systems
afebrile
bp stable
discussed at length with patient
Vital Signs / Physical Exam
Vital Signs
Vital Signs
Temp Pulse Resp BP Pulse Ox
97.3 F 74 18 124/65 88
07/28/24 07:15 07/28/24 07:15 07/28/24 07:15 07/28/24 07:15 07/28/24 07:15
Physical Exam
Constitutional: No Acute Distress, Comfortable and Non-toxic
Eyes: No Conjunctival Hemorrhage and Sclera Anicteric
Cardiovascular: S1/S2; Negative S3/S4
Pulmonary: Non Labored
Gastrointestinal: Soft and Non Tender
Musculoskeletal: Other (Left olecranon bursa swollen - fluctuant)
Skin: Warm and Dry
Neurological: Awake
Objective Data
Lab Data
Lab Results
07/28/24 06:20
07/28/24 06:20
ESR 29 mm/hour (0-20) H 07/25/24 10:50
PT 16.1 Sec (11.4-14.6) H 07/25/24 13:21
INR 1.29 07/25/24 13:21
APTT 35.2 Sec (23.4-35.0) H 07/25/24 13:21
Estimated Creat Clear 83 ml/min 07/28/24 06:20
Total Bilirubin 1.1 mg/dl (0.2-1.3) 07/25/24 10:50
AST 28 U/L (17-59) 07/25/24 10:50
ALT 28 U/L (0-50) 07/25/24 10:50
Alkaline Phosphatase 61 U/L (38-126) 07/25/24 10:50
C-Reactive Protein 174.60 mg/L (0.0-10.00) H 07/25/24 10:50
Most recent labs reviewed.
Micro Results:
07/25/24 11:59 Anaerobic Culture - Preliminary
Elbow - Left NO ANAEROBES ISOLATED
07/25/24 11:59 Wound Culture - Preliminary
Elbow - Left S aureus-Methicillin Sensitive
Gram Stain - Preliminary
Imaging:
07/25/2024 X-ray, left arm: No fracture or dislocation. No joint effusion. A small ulnar osteophyte at the site of attachment of the triceps tendon. There is soft tissue swelling over the dorsal margin of the olecranon suggesting olecranon
bursitis.
Care Review
Plan reviewed with: Physician (Dr Cabrera - [place])
[2024-07-28 15:10] VITALS: BP 111/62
[2024-07-28] MEDS: LASIX 40 MG PO (15:44)
[2024-07-28] MEDS: LOVENOX 40 MG SC (17:21)
[2024-07-28] MEDS: LIPITOR 80 MG PO (17:21)
[2024-07-28] MEDS: NON-FORMULARY ITEM 1 UNIT INH (18:39)
[2024-07-28 23:55] VITALS: BP 132/65
[2024-07-29] MEDS: ANCEF 10 IV ×3 (03:29→20:21)
[2024-07-29 07:06] LABS: % Basophils 0.6 % (0-2); % Eosinophils 1.3 % (0-6); % Immature Granulocytes 0.6 % (0-0.5); % Lymphocytes 8.4 % (20.5-51.1); % Monocytes 11.7 % (1.7-9.3); % Neutrophils 77.4 % (42.2-75.2); Absolute Basophils 0.1 10^3/uL (0-0.2); Absolute Eosinophils 0.1 10^3/uL (0-0.7); Absolute Immature Granulocytes 0.1 10^3/uL (0-0.05); Absolute Lymphocytes 0.7 10^3/uL (1.2-3.4); Absolute Neutrophils 6.6 10^3/uL (1.4-6.5); Hematocrit 44.9 % (39.0-52.0); Hemoglobin 14.7 g/dL (13.0-18.0); Mean Corp Hgb Conc. 32.7 g/dL (33.0-37.0); Mean Corpuscular Hgb 29.5 pg (27.0-31.0); Mean Platelet Volume 10.2 fL (7.4-10.4); Nucleated Red Blood Cells % 0 % (-); Platelet Count 229 10^3/uL (130-400); Red Blood Cell Count 4.99 10^6/uL (4.70-6.10); Red Cell Dist. Width 13.7 % (11.5-14.5); White Blood Cell Count 8.5 10^3/uL (4.8-10.8)
[2024-07-29 07:15] VITALS: BP 101/51
[2024-07-29 07:34] LABS: Blood Urea Nitrogen 16 mg/dl (9-20); Calcium 8.7 mg/dl (8.4-10.2); Carbon Dioxide 34 mmol/L (22-30); Chloride 99 mmol/L (98-107); Estimated Creatinine Clearance 83 ml/min; Glucose 113 mg/dl (70-99); Potassium 3.7 mmol/L (3.5-5.1); Sodium 143 mmol/L (135-145); eGFR > 60.00
--- NOTE | 2024-07-29 07:48 | W.PN.UPDATE ---
Update Note
Progress Note Update
Patient was seen this morning for follow-up for his left elbow septic left olecranon bursitis. He was sleeping, therefore did not disturb.
Aspiration shows positive growth of MSSA.
Physical examination shows no current drainage or bleeding. There is bogginess about the left olecranon bursa. No pain with elbow range of motion, decreased flexion due to swelling, able to perform full extension. NVI distally.
Left elbow septic olecranon bursitis
--Continue with antibiotics per Infectious Disease recommendations. Currently Ancef
--Awaiting PICC line. Plan for course of IV antibiotics
--May be weight bearing as tolerated. Encourage range of motion as tolerated
--Apply dressing to elbow as needed
--Follow up outpatient with Dr. Jaimes in 2 weeks
--Orthopedics will sign off. Please reach out with any additional questions or concerns.
[2024-07-29] MEDS: APRESOLINE PO (08:05)
[2024-07-29] MEDS: ASPIR LOW (ENTERIC COATED) 81 MG PO (08:06)
[2024-07-29] MEDS: VISBIOME 1 CAP PO (08:06)
[2024-07-29] MEDS: TOPROL XL PO (08:06)
[2024-07-29] MEDS: LASIX PO (08:06)
--- NOTE | 2024-07-29 08:36 | W.PN.HOSP.TC ---
Today's Communication/Plan
-
see A/P
Assessment / Plan
Assessment / Plan
HPI: 69-year-old male PMH COPD, HTN, HLD, p/w L elbow pain and swelling.
Pt was working on his pool 2 weeks ago, and had an injury on his left elbow at that time. Since the injury, his elbow has been swollen.
He was seen at an urgent care for chills and body ache ongoing for 1 week, and was told to come to the ED for further evaluation.
He is left elbow was aspirated in the ER and pus was noted.
He was admitted for further treatment of olecranon bursitis/septic arthritis.
A/P:
# Left septic olecranon bursitis
Status post I&D in the ER which noted pus
Wound culture with MSSA
Ortho reaspirated the elbow and 3mL of seropurulent fluid removed 07/26.
Cont empiric antibiotic Ancef via PICC
Of note, L arm US negative for DVT
ID/ortho on board
# Hypokalemia
repleted
# COPD, stable
# HTN
Continue prior to admission hydralazine, Toprol, Lasix, all with holding parameter
# HLD
Atorvastatin
# Peripheral artery disease
# Status post femoral popliteal bypass surgery
cont COVERING MACHINE OPERATOR ASA
DVT ppx: Lovenox SQ
FC
Anticipated Discharge: 24 - 48 hours
Subjective/Interval History
-
Date of Service: July 29, 2024
Objective Data
-
Labs:
Laboratory Results
07/29/24
06:29
WBC 8.5
Hgb 14.7
Hct 44.9
Plt Count 229
Sodium 143
Potassium 3.7
Chloride 99
Carbon Dioxide 34 H
BUN 16
Creatinine 1.0
Glucose 113 H
Calcium 8.7
Vital Signs:
Vital Signs
Temp Pulse Resp BP Pulse Ox
37.4 C 72 22 132/65 86
07/28/24 23:55 07/28/24 23:55 07/28/24 23:55 07/28/24 23:55 07/28/24 23:55
I&O
07/28/24 07/29/24 07/30/24
06:59 06:59 06:59
Intake Total 960 / 960 900 / 900
Output Total 300 / 300
Balance 960 / 960 600 / 600
Review of Systems
-
Musculoskeletal: Reports Joint Pain (L elbow swelling and pain have improved )
Physical Exam
-
General: Well Developed, Well Nourished, No Apparent Distress, Comfortable and Conversant; Negative Respiratory Distress
HEENT: Normocephalic, Atraumatic, Nose Appears Normal and Ears Appear Normal; Negative Oxygen
Respiratory: Clear to Auscultation and Non Labored Respirations; Negative Accessory Resp Muscle Use
Cardiac: Regular Rhythm and S1/S2
GI: Soft, Nontender, Nondistended and Normal Bowel Sounds
Skin: Warm, Dry and Other (L elbow swelling and erythema have improved )
Neuro: Awake, Alert, Oriented, AO x 3 and Nonfocal/Grossly Intact
Psych: Calm and Intact Judgement/Insight
Data Reviewed
-
Ultrasound: Report Reviewed by me
Labs: Labs Reviewed by me
[2024-07-29 15:05] VITALS: BP 157/69
[2024-07-29] MEDS: APRESOLINE 50 MG PO ×2 (16:52→21:58)
[2024-07-29] MEDS: LASIX 40 MG PO (16:52)
--- NOTE | 2024-07-29 17:06 | CM ---
CM met with Jake to discuss discharge to home with [facility] for IV infusion. CM sent fax with all records for IV infusion at home. Discharge for tomorrow; Pt aware and agreeable - explained the process of teaching, medication
delivery and home visits by [facility].
[facility] referral sent via [facility]
Plan: Discharge to home with Home infusion services by [facility].
[facility]
[2024-07-29] MEDS: LOVENOX 40 MG SC (17:28)
[2024-07-29] MEDS: LIPITOR 80 MG PO (17:28)
[2024-07-29] MEDS: NON-FORMULARY ITEM 1 UNIT INH (19:18)
[2024-07-29] MEDS: TOPROL XL 150 MG PO (20:21)
[2024-07-29 20:30] VITALS: BP 126/57
[2024-07-29 23:00] VITALS: BP 135/68
[2024-07-30 00:05] VITALS: BP 135/68
[2024-07-30] MEDS: ANCEF 10 IV ×2 (03:37→12:20)
[2024-07-30 05:40] LABS: % Basophils 0.5 % (0-2); % Eosinophils 2.2 % (0-6); % Immature Granulocytes 0.4 % (0-0.5); % Lymphocytes 9.4 % (20.5-51.1); % Monocytes 12.7 % (1.7-9.3); % Neutrophils 74.8 % (42.2-75.2); Absolute Basophils 0.1 10^3/uL (0-0.2); Absolute Eosinophils 0.2 10^3/uL (0-0.7); Absolute Lymphocytes 0.9 10^3/uL (1.2-3.4); Absolute Monocytes 1.2 10^3/uL (0.1-0.6); Absolute Neutrophils 6.9 10^3/uL (1.4-6.5); Hematocrit 43.6 % (39.0-52.0); Hemoglobin 14.3 g/dL (13.0-18.0); Mean Corp Hgb Conc. 32.8 g/dL (33.0-37.0); Mean Corpuscular Hgb 29.2 pg (27.0-31.0); Mean Platelet Volume 10.3 fL (7.4-10.4); Nucleated Red Blood Cells % 0 % (-); Platelet Count 238 10^3/uL (130-400); Red Cell Dist. Width 13.6 % (11.5-14.5); White Blood Cell Count 9.3 10^3/uL (4.8-10.8)
[2024-07-30 06:11] LABS: Blood Urea Nitrogen 17 mg/dl (9-20); Calcium 8.6 mg/dl (8.4-10.2); Carbon Dioxide 33 mmol/L (22-30); Chloride 101 mmol/L (98-107); Estimated Creatinine Clearance 92 ml/min; Glucose 120 mg/dl (70-99); Potassium 3.5 mmol/L (3.5-5.1); Sodium 143 mmol/L (135-145); eGFR > 60.00
[2024-07-30 07:35] VITALS: BP 145/85
[2024-07-30] MEDS: VISBIOME 1 CAP PO (09:11)
[2024-07-30] MEDS: TOPROL XL 150 MG PO (09:11)
[2024-07-30] MEDS: ASPIR LOW (ENTERIC COATED) 81 MG PO (09:12)
[2024-07-30] MEDS: APRESOLINE 50 MG PO (09:13)
[2024-07-30] MEDS: LASIX 80 MG PO (09:15)
--- NOTE | 2024-07-30 09:17 | W.PN.HOSP.TC ---
Today's Communication/Plan
-
Discharge planning today.
Assessment / Plan
Assessment / Plan
Physical exam:
General: Well Developed, Well Nourished and No Apparent Distress
HEENT: Normocephalic, Atraumatic and Moist Mucous Membranes
Respiratory: Clear to Auscultation; Negative Wheezes, Rales or Rhonchi
Cardiac: Regular Rhythm and S1/S2
GI: Soft, Nontender and Nondistended
Musculoskeletal: Wrapped up left elbow. No Clubbing, No Cyanosis and No Edema
Neuro: Awake, Alert and Oriented
Psych: Calm
A/P:
HPI: 69-year-old male PMH COPD, HTN, HLD, p/w L elbow pain and swelling.
Pt was working on his pool 2 weeks ago, and had an injury on his left elbow at that time. Since the injury, his elbow has been swollen.
He was seen at an urgent care for chills and body ache ongoing for 1 week, and was told to come to the ED for further evaluation.
He is left elbow was aspirated in the ER and pus was noted.
He was admitted for further treatment of olecranon bursitis/septic arthritis.
A/P:
# Left septic olecranon bursitis
Status post I&D in the ER which noted pus
Wound culture with MSSA
Ortho reaspirated the elbow and 3mL of seropurulent fluid removed 07/26.
Cont antibiotic Ancef via PICC
Of note, L arm US negative for DVT
ID/ortho on board
Antibiotics have been set up until 08/08 as outpatient
Ready for discharge today
# Hypokalemia
repleted
# COPD, stable
# HTN
Continue prior to admission hydralazine, Toprol, Lasix, all with holding parameter
# HLD
Atorvastatin
# Peripheral artery disease
# Status post femoral popliteal bypass surgery
cont [employer] ASA
DVT ppx: Lovenox SQ
FC
Anticipated Discharge: Today
Subjective/Interval History
-
Date of Service: July 30, 2024
Patient denies any nausea vomiting or diarrhea. Afebrile. He has his left elbow wrapped up.
Objective Data
-
Labs:
Laboratory Results
07/30/24
04:56
WBC 9.3
Hgb 14.3
Hct 43.6
Plt Count 238
Sodium 143
Potassium 3.5
Chloride 101
Carbon Dioxide 33 H
BUN 17
Creatinine 0.9
Glucose 120 H
Calcium 8.6
Vital Signs:
Vital Signs
Temp Pulse Resp BP Pulse Ox
97.8 F 93 16 145/85 91
07/30/24 07:35 07/30/24 07:35 07/30/24 07:35 07/30/24 07:35 07/30/24 07:35
I&O
07/29/24 07/30/24 07/31/24
06:59 06:59 06:59
Intake Total 900 / 900
Output Total 300 / 300
Balance 600 / 600
--- NOTE | 2024-07-30 09:47 | CM ---
Addendum entered by Heather Chavez 07/30/24 12:29:
[facility] at bedside for teaching - meds to be delivered this PM
[facility] to provide nsg care
to transport home when discharged
Plan: Home with Home infusion services by [facility] and [facility].
[facility]
Original Note:
Case management following for discharge planning
Pt will need home antibiotics
Spoke with Kelli at [facility] - referral not received
Faxed facesheet and PICC line info to [facility]
Per Kelli - plans to do bedside teaching today at 1200 with pt/. Confirming RN availability for tomorrow
Plans to deliver meds this PM pending review of clinical info
[2024-07-30 12:00] VITALS: BP 140/80
--- NOTE | 2024-07-30 13:00 | W.DCSUMMARY ---
Discharge Summary
Discharge Data
Date of Admission: 07/25/24
Date of Discharge: 07/30/24
-
Pending Results: No
Hospital Course
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 Patient was working on his pool a
couple weeks prior to his presentation. ID and orthopedic consulted. He was started on IV antibiotics. He had a drainage of the bursa of about 20 cc of purulent discharge. Ortho did not recommend surgical intervention since is not recommended in
these cases. Patient ultimately grew MSSA from wound cultures. His antibiotics were tailored to organism found, on cefazolin. He was arranged for outpatient IV antibiotics for 2 more weeks or longer if required by ID. Otherwise patient
hemodynamically stable and afebrile. Patient will follow-up with PCP, ID, and orthopedic as outpatient.
Discharge duration: 35 minutes
Discharge Plan
-
Patient Disposition: Home with Home Care
Discharge Diagnosis/Procedures: Left septic olecranon bursitis, methicillin-sensitive Staphylococcus aureus.
Condition: Good
Diet: As tolerated
Additional Activity: L elbow may weight bearing as tolerated. Encourage range of motion as tolerated
Driving Restrictions: Not until seen by your Dr
Blood Work: Please PCP and ID to order CBC, BMP within 1 week
Activity Restrictions/Additional Instructions:
Follow up outpatient with Dr. Jaimes in 2 weeks
Referrals:
Jose Adams DO [Active] - in one to two weeks
Mina Jaimes MD [Active] - in two to four weeks
Radha Feliciano MD [Family Provider] - in less than 1 week
Prescriptions:
New
cefazolin 10 gram Recon Soln
2 g IV Q8H 10 Days Qty: 0 0RF
Continued
furosemide 40 MG tablet
80 mg PO DAILY
metoprolol succinate 100 MG tablet extended release 24 hr
150 mg PO BID
aspirin [[place] Low Dose Aspirin] 81 MG tablet,delayed release (DR/EC)
81 mg PO DAILY
hydralazine 50 mg Tablet
50 mg PO TID
Trelegy Ellipta 200-62.5-25 mcg Blister With Device
1 inh INHALATION HS
furosemide 40 mg tablet
40 mg PO DAILY@1600
atorvastatin 80 mg tablet
80 mg PO DAILY
Discharge Orders:
Discharge Patient (As Directed); Ordered 07/30/24
Ordered By: Ahsan Long
Discharge Date and Time
Discharge Date/Time: 07/30/24 14:31
Print Language: RWANDAN
== END 2024-07-30 14:31 | disposition home health service (06) | DRG 549 ==
LOC: 4 EAST ACU 14:19
PROVIDERS: Chiropractor; Physician Assistant; ADMITTING PHYSICIAN Internal Medicine; ATTENDING PHYSICIAN Hospitalist; CONSULT PHYSICIAN Student in an Organized Health Care Education/Training Program; EMERGENCY PHYSICIAN Student in an Organized Health Care Education/Training Program; FAMILY PHYSICIAN Family Medicine; OTHER PHYSICIAN Internal Medicine Infectious Disease
PROC: 0R9M3ZZ Drainage of Left Elbow Joint, Percutaneous Approach (ICD-10-PCS; 2024-07-28)
DX: M00.022 Staphylococcal arthritis, left elbow (principal); L03.114 Cellulitis of left upper limb; Z87.891 Personal history of nicotine dependence; E87.6 Hypokalemia; J44.9 Chronic obstructive pulmonary disease, unspecified; I10 Essential (primary) hypertension; E78.00 Pure hypercholesterolemia, unspecified; I73.9 Peripheral vascular disease, unspecified; M00.9 Pyogenic arthritis, unspecified
CPT/HCPCS: 20605; 71045; 73080; 80048; 80053; 83735; 85025; 85610; 85652; 85730; 86140; 87070; 87075; 87147; 87186; 87205; 93971; 94640; 96365; 96375; 97165; 99285

== ENCOUNTER → 2024-08-21 10:13 | Outpatient (REF) | payer MEDICARE, OTHER, SELFPAY | LOC: RCS 10:13 | PROVIDERS: ATTENDING PHYSICIAN Internal Medicine; FAMILY PHYSICIAN Family Medicine | DX: I42.1 Obstructive hypertrophic cardiomyopathy (principal); R60.0 Localized edema | CPT/HCPCS: 93307; Q9957 ==

== ENCOUNTER → 2025-01-23 11:03 | Outpatient (REF) | payer MEDICARE, OTHER, SELFPAY | LOC: HWRAD 11:03 | PROVIDERS: ATTENDING PHYSICIAN Internal Medicine Critical Care Medicine; FAMILY PHYSICIAN Family Medicine | DX: Z87.891 Personal history of nicotine dependence (principal) | CPT/HCPCS: 71271 ==

== ENCOUNTER → 2025-05-23 10:21 | Outpatient (REF) | payer MEDICARE, OTHER, SELFPAY | LOC: PAVMRI 10:21 | PROVIDERS: ATTENDING PHYSICIAN Family Medicine | DX: M25.561 Pain in right knee (principal) | CPT/HCPCS: 73721 ==

== ENCOUNTER → 2025-05-27 10:59 | Outpatient (REF) | payer MEDICARE, OTHER, SELFPAY | LOC: RAD 10:59 | PROVIDERS: ATTENDING PHYSICIAN Family Medicine | DX: M25.561 Pain in right knee (principal); M25.562 Pain in left knee | CPT/HCPCS: 73564; 73565 ==

== ENCOUNTER → 2025-05-29 07:56 | Outpatient (REF) | payer MEDICARE, OTHER, SELFPAY | LOC: RAD 07:56 | PROVIDERS: ATTENDING PHYSICIAN Surgery Vascular Surgery; FAMILY PHYSICIAN Family Medicine | DX: I73.9 Peripheral vascular disease, unspecified (principal); I71.43 Infrarenal abdominal aortic aneurysm, without rupture | CPT/HCPCS: 76770; 93922; 93925 ==

== ENCOUNTER 2025-07-11 06:22 | Day surgery (SDC) | payer MEDICARE, OTHER, SELFPAY | END 2025-07-11 14:44 | disposition home or self-care (01) | LOC: GI 06:22 | PROVIDERS: ATTENDING PHYSICIAN Internal Medicine Gastroenterology | DX: Z12.11 Encounter for screening for malignant neoplasm of colon (principal); K57.30 Diverticulosis of large intestine without perforation or abscess without bleeding; K64.8 Other hemorrhoids; D12.4 Benign neoplasm of descending colon; K63.5 Polyp of colon; K63.89 Other specified diseases of intestine; Z86.0100 Personal history of colon polyps, unspecified | CPT/HCPCS: 45385; 45381; 45380; 88305 ==